=== PATIENT | female | born 1935 | race Caucasian/White ===

== ENCOUNTER → 2017-11-22 | Outpatient (CLI) | payer MEDICARE, BC ==
--- NOTE | 2017-11-22 12:58 | Diagnostic Imaging Report ---
PROCEDURE:X-RAY LEFT HAND, THREE OR MORE VIEWS COMPARISON:None. INDICATIONS:LEFT HAND PAIN FINDINGS: There are no acute fractures, dislocations, lytic or blastic lesions. Moderate degenerative changes of the first carpometacarpal joint. Mild degenerative changes of multiple distal interphalangeal joints. A small calcific density along the volar aspect of the third middle phalanx may be related to remote trauma. The bones are well-mineralized. The soft-tissues are unremarkable. CONCLUSION: No acute radiographic abnormalities. Dictated by: Rubio Pearson M.D. on 11/22/2017 at 12:58 Electronically approved by: Rubio Pearson M.D. on 11/22/2017 at 12:58
--- NOTE | 2017-11-22 13:04 | Diagnostic Imaging Report ---
PROCEDURE:X-RAY LEFT WRIST, COMPLETE COMPARISON:None. INDICATIONS:LEFT WRIST PAIN FINDINGS: There are no fractures, dislocations, lytic or blastic lesions. Moderate degenerative changes of the first carpometacarpal joint. The bones are well-mineralized. The soft-tissues are unremarkable. CONCLUSION: No acute radiographic abnormality. Dictated by: Rubio Pearson M.D. on 11/22/2017 at 13:04 Electronically approved by: Rubio Pearson M.D. on 11/22/2017 at 13:04
== END ==
LOC: RAD 12:15
PROVIDERS: ATTEND Family Medicine
DX: M79.642 Pain in left hand (principal); M25.532 Pain in left wrist; E87.6 Hypokalemia